=== PATIENT | female | born 1930 | race African-American/Black ===

== ENCOUNTER → 2016-05-14 | Outpatient (CLI) | payer MEDICARE, OTHER ==
[2016-05-14 11:28] LABS: ALANINE AMINOTRANSFERASE 23 U/L (9-52); ALBUMIN 3.8 g/dL (3.5-5.0); ALKALINE PHOSPHATASE 50 U/L (38-126); ANION GAP 12 (5-19); ASPARTATE AMINO TRANSFERASE 28 U/L (14-36); BILIRUBIN,TOTAL 0.5 mg/dL (0.2-1.3); BLOOD UREA NITROGEN 16 mg/dL (7-20); CALCIUM 9.5 mg/dL (8.4-10.2); CARBON DIOXIDE 27 mmol/L (22-30); CHLORIDE 97 mmol/L (98-107); CHOLESTEROL 166.16 mg/dL (0-200); CREATININE RESULT 0.75 mg/dL (0.52-1.25); Direct HDL 61 mg/dL (>40); GLUCOSE 89 mg/dL (75-110); POTASSIUM 3.8 mmol/L (3.6-5.0); SODIUM 135.6 mmol/L (137-145); TOTAL PROTEIN 7.1 g/dL (6.3-8.2); TRIGLYCERIDES 56 mg/dL (<150)
[2016-05-14 11:40] LABS: DIRECT LDL 85 mg/dL (<100)
== END ==
LOC: OD 09:33
PROVIDERS: ATTEND Internal Medicine
DX: I10 Essential (primary) hypertension (principal); E78.5 Hyperlipidemia, unspecified; I44.2 Atrioventricular block, complete; R00.1 Bradycardia, unspecified; Z79.899 Other long term (current) drug therapy; Z95.0 Presence of cardiac pacemaker; K21.9 Gastro-esophageal reflux disease without esophagitis; I36.1 Nonrheumatic tricuspid (valve) insufficiency
CPT/HCPCS: 36415; 80053; 80061

== ENCOUNTER 2017-03-30 07:57 | Emergency (ER) | payer MEDICARE, OTHER ==
[2017-03-30] MEDS ORDERED: ASPIRIN 81 MG TABLET, CHEWABLE PO ONE (08:09)
--- NOTE | 2017-03-30 08:13 | ER Document Report ---
ED General - General Chief Complaint: Dizziness Stated Complaint: DIZZY/WEAKNESS Time Seen by Provider: 03/30/17 08:09 Mode of Arrival: Medic Information source: Patient Notes: 86-year-old female history of pacemaker presents with complaints of feeling jittery dizzy and anxious. Patient denies any actual chest pain admits to nausea. She denies any abdominal pain or any other pain TRAVEL OUTSIDE OF THE [place] IN LAST 30 DAYS: No - HPI Onset: Just prior to arrival Onset/Duration: Sudden Quality of pain: No pain Severity: Mild Pain Level: Denies Associated symptoms: Nausea, Weakness, Other Exacerbated by: Denies Relieved by: Denies Similar symptoms previously: No Recently seen / treated by doctor: No - Related Data Allergies/Adverse Reactions: No Known Allergies Allergy (Verified 03/30/17 07:58) Home Medications: Current Home Medications Aspirin [Aspirin 81 mg Chewable Tablet] 1 tab PO DAILY 03/30/17 [History] Hydralazine HCl 100 mg PO TID 03/30/17 [History] Omeprazole 20 mg PO DAILY 03/30/17 [History] Past Medical History - Social History Smoking Status: Never Smoker Cigarette use (# per day): No Chew tobacco use (# tins/day): No Smoking Education Provided: No Family History: Reviewed & Not Pertinent - Past Medical History Cardiac Medical History: Reports: Hx Hypercholesterolemia, Hx Hypertension GI Medical History: Reports: Hx Gastroesophageal Reflux Disease Past Surgical History: Reports: Hx Appendectomy, Hx Hysterectomy, Hx Tubal Ligation - Immunizations Hx Diphtheria, Pertussis, Tetanus Vaccination: Yes Hx Pneumococcal Vaccination: 04/29/11 Review of Systems - Review of Systems Notes: REVIEW OF SYSTEMS: CONSTITUTIONAL : Denies fever, chills, or sweats. Denies recent illness. EENT: Denies eye, ear, throat, or mouth pain or symptoms. Denies nasal or sinus congestion or discharge. Denies throat, tongue, or mouth swelling or difficulty swallowing. CARDIOVASCULAR: Denies chest pain. Denies palpitations or racing or irregular heart beat. Denies ankle edema. RESPIRATORY: Denies cough, cold, or chest congestion. Denies shortness of breath, difficulty breathing, or wheezing. GASTROINTESTINAL: Admits to nausea GENITOURINARY: Denies difficulty urinating, painful urination, burning, frequency, blood in urine, or discharge. FEMALE GENITOURINARY: Denies vaginal bleeding, heavy or abnormal periods, irregular periods. Denies vaginal discharge or odor. MUSCULOSKELETAL: Denies back or neck pain or stiffness. Denies joint pain or swelling. SKIN: Denies rash, lesions or sores. HEMATOLOGIC : Denies easy bruising or bleeding. LYMPHATIC: Denies swollen, enlarged glands. NEUROLOGICAL: Admits to dizziness PSYCHIATRIC: Admits to anxiety ALL OTHER SYSTEMS REVIEWED AND NEGATIVE. PHYSICAL EXAMINATION: GENERAL: Well-appearing, well-nourished and in no acute distress. HEAD: Atraumatic, normocephalic. EYES: Pupils equal round and reactive to light, extraocular movements intact, conjunctiva are normal. ENT: Nares patent, oropharynx clear without exudates. Moist mucous membranes. NECK: Normal range of motion, supple without lymphadenopathy LUNGS: Breath sounds clear to auscultation bilaterally and equal. No wheezes rales or rhonchi. HEART: Regular rate and rhythm without murmurs ABDOMEN: Soft, nontender, nondistended abdomen. No guarding, no rebound. No masses appreciated. Female : deferred Musculoskeletal: Normal range of motion, no pitting or edema. No cyanosis. NEUROLOGICAL: Cranial nerves grossly intact. Normal speech, normal gait. Normal sensory, motor exams PSYCH: Normal mood, normal affect. SKIN: Warm, Dry, normal turgor, no rashes or lesions noted. Dictation was performed using [employer] voice recognition software Physical Exam - Vital signs Vitals: Temp Pulse Resp BP Pulse Ox 98.5 F 94 18 114/85 99 03/30/17 08:01 03/30/17 08:01 03/30/17 08:01 03/30/17 08:01 03/30/17 08:01 Course - Re-evaluation Re-evalutation: 03/30/17 10:31 After labs and imaging noted no significant abnormality, I spoke with the patient further, she admits she is just very anxious because there is an inmate on the loose and she was unable to sleep all night. I believe patient's symptoms are all anxiety related After performing a Medical Screening Examination, I estimate there is LOW risk for INTRACRANIAL HEMORRHAGE, ISCHEMIC CVA, MALIGNANT DYSRHYTHMIA, ACUTE CORONARY SYNDROME, MENINGITIS, PULMONARY EMBOLISM, or SEPSIS thus I consider the discharge disposition reasonable. I have reevaluated this patient multiple times and no significant life threatening changes are noted. The patient and I have discussed the diagnosis and risks, and we agree with discharging home with close follow-up with the understanding that symptoms and presentations can change. We also discussed returning to the Emergency Department immediately if new or worsening symptoms occur. We have discussed the symptoms which are most concerning (e.g., changing or worsening pain, weakness, vomiting, fever) that necessitate immediate return. - Vital Signs Vital signs: Temp Pulse Resp BP Pulse Ox 98.5 F 94 21 H 148/69 H 99 03/30/17 08:01 03/30/17 08:01 03/30/17 10:01 03/30/17 10:01 03/30/17 10:01 - Laboratory Result Diagrams: 03/30/17 08:59 03/30/17 08:59 Laboratory results interpreted by me: 03/30/17 03/30/17 03/30/17 08:59 08:59 08:59 WBC 3.9 L RDW 14.2 H Monocytes % 13.4 H Glucose 121 H Urine Protein 30 H Ur Leukocyte Esterase TRACE H Urine Ascorbic Acid 40 H - Diagnostic Test Radiology reviewed: Image reviewed, Reports reviewed - EKG Interpretation by Me EKG shows normal: Sinus rhythm, [place], Intervals, QRS Complexes - Paced rhythm Discharge - Discharge Clinical Impression: Anxiety, Dizzy, Nausea Condition: Stable Disposition: HOME, SELF-CARE Instructions: Dizziness ([facility]) Referrals: ANIKA AGRAWAL MD [Primary Care Provider] - Follow up tomorrow
[2017-03-30 09:18] LABS: ABSOLUTE LYMPHOCYTES (AUTO) 0.6 10^3/uL (0.5-4.7); ABSOLUTE MONOCYTES (AUTO) 0.5 10^3/uL (0.1-1.4); ABSOLUTE NEUT (AUTO) 2.7 10^3/uL (1.7-8.2); APPEARANCE,URINE SLIGHTLY-CLOUDY; BASOPHILS % (AUTO) 0.5 % (0-2); BILIRUBIN,URINE NEGATIVE (NEGATIVE); EOSINOPHILS % (AUTO) 0.7 % (0-6); GLUCOSE, URINE NEGATIVE (NEGATIVE); HEMATOCRIT 36.8 % (36.0-47.0); HEMOGLOBIN 13.2 g/dL (12.0-15.5); HGB HCT DIFFERENCE 2.8; KETONES,URINE NEGATIVE (NEGATIVE); LEUKOCYTE ESTERASE,URINE TRACE (NEGATIVE); LYMPHOCYTES % (AUTO) 16.2 % (13-45); MEAN CORPUSCULAR HEMOGLOBIN 33.1 pg (27.0-33.4); MEAN CORPUSCULAR HGB CONC 35.8 g/dL (32.0-36.0); MEAN CORPUSCULAR VOLUME 93 fl (80-97); MONOCYTES % (AUTO) 13.4 % (3-13); NITRITE,URINE NEGATIVE (NEGATIVE); PROTEIN,URINE 30 mg/dL (NEGATIVE); RED BLOOD COUNT 3.97 10^6/uL (3.72-5.28); RED CELL DISTRIBUTION WIDTH 14.2 % (11.5-14.0); SEGMENTED NEUTROPHILS % (AUTO) 69.2 % (42-78); URINE SPECIFIC GRAVITY 1.024; UROBILINOGEN,URINE NEGATIVE mg/dL (<2.0); WHITE BLOOD COUNT 3.9 10^3/uL (4.0-10.5)
--- NOTE | 2017-03-30 09:23 | RADIOLOGY REPORT (SQ) ---
EXAM DESCRIPTION: CT HEAD WITHOUT COMPLETED DATE/TIME: 03/30/2017 9:13 am REASON FOR STUDY: dizzy COMPARISON: 02/02/2009, 06/06/2011 TECHNIQUE: Axial images acquired through the brain without intravenous contrast. Images reviewed wi th bone, brain and subdural windows. Images stored on PACS. All CT scanners at this facility use dose modulation, iterative reconstruction, and/or weight based d osing when appropriate to reduce radiation dose to as low as reasonably achievable (ALARA). [facility]: Dose Right [facility]: CareDose [facility]: Dose Right [facility]: Teradose 4D [facility]: Sponsia RADIATION DOSE: 64 mGy. LIMITATIONS: None. FINDINGS: VENTRICLES: Normal size and contour. CEREBRUM: No masses. No hemorrhage. No midline shift. No evidence for acute infarction. Few scatte red areas of low density in the white matter and basal ganglia on most likely chronic small vessel is chemic changes. CEREBELLUM: No masses. No hemorrhage. No alteration of density. No evidence for acute infarction. EXTRAAXIAL SPACES: No fluid collections. No masses. ORBITS AND GLOBE: No intra- or extraconal masses. Normal contour of globe without masses. CALVARIUM: No fracture. PARANASAL SINUSES: No fluid or mucosal thickening. SOFT TISSUES: No mass or hematoma. OTHER: No other significant finding. IMPRESSION: Stable chronic white matter disease. No acute findings EVIDENCE OF ACUTE STROKE: NO. COMMENT: Quality ID # [id number]: Final reports with documentation of one or more dose reduction techniques (e.g., Automated exposure control, adjustment of the mA and/or kV according to patient size, use of iterative reconstruction technique) TECHNICAL DOCUMENTATION: JOB ID: [id number]- All Rights Reserved
[2017-03-30 09:30] LABS: RBC,URINE 0-1 /HPF
[2017-03-30 09:31] LABS: BACTERIA,URINE 2+ /HPF
[2017-03-30 09:40] LABS: ALANINE AMINOTRANSFERASE 28 U/L (9-52); ALBUMIN 4.2 g/dL (3.5-5.0); ALKALINE PHOSPHATASE 50 U/L (38-126); ANION GAP 12 (5-19); ASPARTATE AMINO TRANSFERASE 25 U/L (14-36); BILIRUBIN,DIRECT 0.4 mg/dL (0.0-0.4); BILIRUBIN,TOTAL 0.7 mg/dL (0.2-1.3); BLOOD UREA NITROGEN 10 mg/dL (7-20); CALCIUM 9.7 mg/dL (8.4-10.2); CARBON DIOXIDE 25 mmol/L (22-30); CHLORIDE 101 mmol/L (98-107); CREATINE KINASE 70 U/L (30-135); CREATININE RESULT 0.67 mg/dL (0.52-1.25); GLUCOSE 121 mg/dL (75-110); POTASSIUM 3.6 mmol/L (3.6-5.0); TOTAL PROTEIN 7.8 g/dL (6.3-8.2)
[2017-03-30 09:52] LABS: CREATINE KINASE MB 1.12 ng/mL (<4.55)
[2017-03-30 09:53] LABS: TROPONIN I < 0.012 ng/mL
--- NOTE | 2017-03-30 10:04 | RADIOLOGY REPORT (SQ) ---
EXAM DESCRIPTION: CHEST SINGLE VIEW COMPLETED DATE/TIME: 03/30/2017 9:16 am REASON FOR STUDY: weakness COMPARISON: Chest films 07/31/2014, 07/10/2012 EXAM PARAMETERS: NUMBER OF VIEWS: One view. TECHNIQUE: Single frontal radiographic view of the chest acquired. RADIATION DOSE: NA LIMITATIONS: None. FINDINGS: LUNGS AND PLEURA: No opacities, masses or pneumothorax. No pleural effusion. MEDIASTINUM AND HILAR STRUCTURES: No masses. Contour normal. HEART AND VASCULAR STRUCTURES: Stable cardiomegaly. BONES: Old right proximal humerus fracture HARDWARE: Left-sided pacemaker OTHER: No other significant finding. IMPRESSION: No acute findings TECHNICAL DOCUMENTATION: JOB ID: [id number] [employer]- All Rights Reserved
[2017-03-30] MEDS ORDERED: METOCLOPRAMIDE HCL INJ/PF 10 MG/2 ML SDV IV ONE (10:12)
[2017-03-30 11:00] VITALS: BP 148/69
--- NOTE | 2017-03-30 20:58 | EKG REPORT ---
SEVERITY:- ABNORMAL ECG - ATRIAL-SENSED VENTRICULAR-PACED RHYTHM : Confirmed by: Leroy Edmonds MD 30-Mar-2017 14:24:42
== END 2017-03-30 11:00 | disposition home or self-care (01) ==
LOC: ER 07:57
DX: F41.9 Anxiety disorder, unspecified (principal); R42 Dizziness and giddiness; R11.0 Nausea; R53.1 Weakness; I10 Essential (primary) hypertension; Z95.0 Presence of cardiac pacemaker
CPT/HCPCS: 93005; 99285; 96374; 36415; 82553; 82550; 85025; 80053; 81001; 84484; 71010; 70450; 93010; A9270; J2765

== ENCOUNTER 2017-04-14 15:01 | Emergency (ER) | payer MEDICARE, OTHER ==
[2017-04-14] MEDS ORDERED: ONDANSETRON 4 MG TAB.RAPDIS PO ONE (15:26)
[2017-04-14] MEDS ORDERED: HYDROCODONE/ACETAMINOPHEN 5-325 MG TABLET PO ONE (15:26)
--- NOTE | 2017-04-14 15:28 | ER Document Report ---
ED Medical Screen (RME) - General Chief Complaint: Headache Stated Complaint: HEADACHE Time Seen by Provider: 04/14/17 15:19 Notes: This 86-year-old female patient comes emergency room complaining of a bitemporal type headache that started last night. She took 2 Tylenol which seemed to help a little. She did not take any Tylenol today. She describes the pain as a pounding headache, she also reports she gets dizzy when she gets up, the dizziness will go and come. The dizziness is not present now. When asked about the headache, she states "I still feels some misery in there". She is a very vague historian. She was seen here on 03/30/2017 complaining of dizziness and weakness and ultimately diagnosed as having anxiety problems. I have greeted and performed a rapid initial assessment of this patient. A comprehensive ED assessment and evaluation of the patient, analysis of test results and completion of the medical decision making process will be conducted by additional ED providers. TRAVEL OUTSIDE OF THE [place] IN LAST 30 DAYS: No - Related Data Allergies/Adverse Reactions: No Known Allergies Allergy (Verified 04/14/17 15:02) Past Medical History - Social History Chew tobacco use (# tins/day): No Frequency of alcohol use: None Drug Abuse: None - Past Medical History Cardiac Medical History: Reports: Hx Hypercholesterolemia, Hx Hypertension Renal/ Medical History: Denies: Hx Peritoneal Dialysis GI Medical History: Reports: Hx Gastroesophageal Reflux Disease Past Surgical History: Reports: Hx Appendectomy, Hx Cardiac Surgery - pacemaker , [facility] 2014, Hx Hysterectomy, Hx Tubal Ligation - Immunizations Hx Diphtheria, Pertussis, Tetanus Vaccination: Yes Physical Exam - Vital signs Vitals: Temp Pulse Resp BP Pulse Ox 98.5 F 68 16 157/60 H 97 04/14/17 15:11 04/14/17 15:11 04/14/17 15:11 04/14/17 15:11 04/14/17 15:11 Course - Vital Signs Vital signs: Temp Pulse Resp BP Pulse Ox 98.5 F 68 16 157/60 H 97 04/14/17 15:11 04/14/17 15:11 04/14/17 15:11 04/14/17 15:11 04/14/17 15:11
[2017-04-14 16:06] LABS: ABSOLUTE EOSINOPHILS # (AUTO) 0.1 10^3/uL (0.0-0.6); ABSOLUTE LYMPHOCYTES (AUTO) 0.8 10^3/uL (0.5-4.7); ABSOLUTE MONOCYTES (AUTO) 0.6 10^3/uL (0.1-1.4); ABSOLUTE NEUT (AUTO) 3.2 10^3/uL (1.7-8.2); BASOPHILS % (AUTO) 0.9 % (0-2); EOSINOPHILS % (AUTO) 2.2 % (0-6); HEMOGLOBIN 12.7 g/dL (12.0-15.5); HGB HCT DIFFERENCE 2.1; LYMPHOCYTES % (AUTO) 16.6 % (13-45); MEAN CORPUSCULAR HEMOGLOBIN 32.7 pg (27.0-33.4); MEAN CORPUSCULAR HGB CONC 35.3 g/dL (32.0-36.0); MEAN CORPUSCULAR VOLUME 93 fl (80-97); MONOCYTES % (AUTO) 12.7 % (3-13); RED BLOOD COUNT 3.89 10^6/uL (3.72-5.28); RED CELL DISTRIBUTION WIDTH 13.6 % (11.5-14.0); SEGMENTED NEUTROPHILS % (AUTO) 67.6 % (42-78); WHITE BLOOD COUNT 4.7 10^3/uL (4.0-10.5)
[2017-04-14 16:08] LABS: APPEARANCE,URINE CLEAR; BILIRUBIN,URINE NEGATIVE (NEGATIVE); GLUCOSE, URINE NEGATIVE (NEGATIVE); KETONES,URINE NEGATIVE (NEGATIVE); LEUKOCYTE ESTERASE,URINE NEGATIVE (NEGATIVE); NITRITE,URINE NEGATIVE (NEGATIVE); PROTEIN,URINE NEGATIVE (NEGATIVE); URINE SPECIFIC GRAVITY 1.006; UROBILINOGEN,URINE NEGATIVE mg/dL (<2.0)
[2017-04-14 16:22] LABS: ALANINE AMINOTRANSFERASE 29 U/L (9-52); ALBUMIN 4.3 g/dL (3.5-5.0); ALKALINE PHOSPHATASE 50 U/L (38-126); ANION GAP 12 (5-19); ASPARTATE AMINO TRANSFERASE 22 U/L (14-36); BILIRUBIN,DIRECT 0.3 mg/dL (0.0-0.4); BILIRUBIN,TOTAL 0.4 mg/dL (0.2-1.3); BLOOD UREA NITROGEN 12 mg/dL (7-20); CALCIUM 9.6 mg/dL (8.4-10.2); CARBON DIOXIDE 26 mmol/L (22-30); CHLORIDE 98 mmol/L (98-107); CREATININE RESULT 0.69 mg/dL (0.52-1.25); GLUCOSE 108 mg/dL (75-110); POTASSIUM 3.3 mmol/L (3.6-5.0); SODIUM 136.2 mmol/L (137-145); TOTAL PROTEIN 7.6 g/dL (6.3-8.2)
[2017-04-14] MEDS ORDERED: HYDRALAZINE HCL 50 MG TABLET PO ONE (16:42)
[2017-04-14 16:45] LABS: ERYTHROCYTE SEDIMENTATION RATE 23 mm/hr (0-30)
--- NOTE | 2017-04-14 16:46 | ER Document Report ---
ED Headache - General Chief Complaint: Headache Stated Complaint: HEADACHE Time Seen by Provider: 04/14/17 15:19 Notes: patient is a 86 year old female who presents emergency department complaining of headache over the past 24 hours. Patient states that she has had them on and off for the past couple weeks respond to Tylenol. She denies any head trauma, fall. Patient is not on blood thinners. States that her headache she woke up with yesterday described as a tension headache in her temples and is a throbbing pain. Otherwise denies any light sensitivity, sound sensitivity, nausea, vomiting, vision changes, blurry vision. Patient does have a history of hypertension, GERD. She is on hydralazine, amlodipine, metoprolol as well as omeprazole and baby aspirin. She was seen here on March 30 for lightheadedness and dizziness without an associated headache at that time. Otherwise she denies any weakness or dizziness at this time, weakness, numbness or tingling, chest pain. She does have a dual pacemaker ICD in place. TRAVEL OUTSIDE OF THE [place] IN LAST 30 DAYS: No - Related Data Allergies/Adverse Reactions: No Known Allergies Allergy (Verified 04/14/17 15:02) Past Medical History - Social History Smoking Status: Never Smoker Chew tobacco use (# tins/day): No Frequency of alcohol use: None Drug Abuse: None Family History: Reviewed & Not Pertinent Patient has suicidal ideation: No Patient has homicidal ideation: No - Past Medical History Cardiac Medical History: Reports: Hx Hypercholesterolemia, Hx Hypertension Renal/ Medical History: Denies: Hx Peritoneal Dialysis GI Medical History: Reports: Hx Gastroesophageal Reflux Disease Past Surgical History: Reports: Hx Appendectomy, Hx Cardiac Surgery - pacemaker , [facility] 2013, Hx Hysterectomy, Hx Tubal Ligation - Immunizations Hx Diphtheria, Pertussis, Tetanus Vaccination: Yes Hx Pneumococcal Vaccination: 04/29/11 Review of Systems - Review of Systems Constitutional: No symptoms reported EENT: No symptoms reported Cardiovascular: No symptoms reported Respiratory: No symptoms reported Gastrointestinal: No symptoms reported Musculoskeletal: No symptoms reported Neurological/Psychological: See HPI -: Yes All other systems reviewed and negative Physical Exam - Vital signs Vitals: Temp Pulse Resp BP Pulse Ox 98.5 F 68 16 157/60 H 97 04/14/17 15:11 04/14/17 15:11 04/14/17 15:11 04/14/17 15:11 04/14/17 15:11 - General General appearance: Appears well, Alert In distress: None - HEENT Head: Normocephalic, Atraumatic Eyes: Normal Extraocular movements intact: Yes Eyelashes: Normal Pupils: PERRL Neck: Normal - Respiratory Respiratory status: No respiratory distress Chest status: Nontender Breath sounds: Normal Chest palpation: Normal - Cardiovascular Rhythm: Regular Heart sounds: Normal auscultation, S1 appreciated, S2 appreciated Pulses: Normal: Radial, Dorsalis pedis Normal capillary refill: Yes - Abdominal Inspection: Normal Distension: No distension Bowel sounds: Normal Tenderness: Nontender Organomegaly: No organomegaly - Extremities General upper extremity: Normal inspection, Nontender, Normal color, Normal ROM , Normal strength, Normal temperature General lower extremity: Normal inspection, Nontender, Normal color, Normal ROM , Normal strength, Normal temperature, Normal weight bearing - Neurological Neuro grossly intact: Yes Cognition: Normal Orientation: AAOx4 Peel Coma Scale Eye Opening: Spontaneous Peel Coma Scale Verbal: Oriented Peel Coma Scale Motor: Obeys Commands Shae Coma Scale Total: 15 Speech: Normal Cranial nerves: Normal. No: Facial palsy, Gaze palsy, Sensory deficit, Tongue deviation Cerebellar coordination: Normal, Heel-guzman - no difficulty, Other - negative for dysmetria with normal finger to nose testing. 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 No: Pronator drift, Weakness, Hemiplegia Sensory: Normal - Skin Skin Temperature: Warm Skin Moisture: Dry Skin Color: Normal Skin Turgor: Elastic Course - Re-evaluation Re-evalutation: 04/14/17 18:00 Patient is an 86-year-old female who is hemodynamically stable, no acute distress and afebrile. Patient has been having these headaches for quite some time and they do respond to Tylenol. States that this headache is not any different than her normal chest that did not go away after Tylenol. Patient did skip a dose of her hydralazine which was given in the emergency department. After then medications received in triage, patient states that her throbbing is much improved. Patient also had a recent head CT on Mar.30 which was benign. Low clinical suspicion for TIA, CVA, intracranial hemorrhage given patient does not have any focal neurologic deficits, nuchal rigidity, vital signs are within normal limits no papilledema. Patient is otherwise no acute distress and hemodynamically stable. Low index for suspicion of acute subarachnoid hemorrhage, meningitis or mass. Low suspicion for acute life- threatening etiology with intact neuro exam therefore no additional imaging or laboratory testing is indicated. Will discharge patient home with strict follow -up with PCP for blood pressure check within the next week. - Vital Signs Vital signs: Temp Pulse Resp BP Pulse Ox 98.5 F 68 16 157/60 H 97 04/14/17 15:11 04/14/17 15:11 04/14/17 15:11 04/14/17 15:11 04/14/17 15:11 - Laboratory Result Diagrams: 04/14/17 15:34 04/14/17 15:34 Laboratory results interpreted by me: 04/14/17 15:34 Sodium 136.2 L Potassium 3.3 L - EKG Interpretation by Me EKG shows normal: Sinus rhythm Rate: Normal Rhythm: Other - paced When compared to previous EKG there are: No significant change Discharge - Discharge Clinical Impression: Headache Qualifiers: Headache type: unspecified Headache chronicity pattern: episodic headache Intractability: not intractable Qualified Code(s): R51 - Headache Condition: Good Disposition: HOME, SELF-CARE Additional Instructions: HEADACHE: The physician does not feel that the headache you are experiencing has a serious underlying cause. Most headaches are due to emotional stress, with resultant muscle tension (tension headache). Occasionally, headaches are secondary to changes in the blood vessels of the scalp (vascular headache and migraine headache). Sometimes, a headache is the first symptom of another developing illness, such as a viral infection. You have no evidence of stroke, bleeding, meningitis, or other serious cause of your headache. The treatment of headaches varies with the severity and cause of the pain. Not all headaches need pain shots. In fact, there is evidence that using narcotics for headaches may make them worse in the long run. The physician will determine the therapy that's in your best interest. If you develop a fever, if the headache is different from any you've previously experienced, or if the headache progressively worsens, then call your physician at once or go to the emergency room. USE OF DIPHENHYDRAMINE: Diphenhydramine (Benadryl) is an antihistamine and has been recommended to help treat your headache and to prevent side effects of other medications used to treat headaches. The medication can be repeated four times daily. Age Elixir (12.5 mg/tsp) 25 mg pill adult 1-2 tabs Antihistamines may cause drowsiness, especially with the first dose. Do not operate machinery or drive while under the effects of the medication. Do not combine the medication with alcohol, or with any other medication without talking to your doctor. ANTINAUSEA MEDICATION: You have been given a medication to suppress nausea and vomiting. This type of medication can be given as a shot, pill, or suppository. It will usually last for many hours. Pills and shots usually last six to eight hours, suppositories last about 12 hours. For the typical illness, only one or two doses of the medication may be necessary. Mild lightheadedness may occur. This type of medicine can cause drowsiness. Do not drive or operate dangerous machinery while under its influence. Do not mix with alcohol. See your doctor at once if you have muscle spasms or tightness, or uncontrollable motions (particularly of the neck, mouth, or jaw). Persistent vomiting or severe lightheadedness should also be evaluated by the physician. FOLLOW-UP CARE: If you have been referred to a physician for follow-up care, call the physician s office for an appointment as you were instructed or within the next two days. If you experience worsening or a significant change in your symptoms, notify the physician immediately or return to the Emergency Department at any time for re-evaluation. Referrals: ANIKA AGRAWAL MD [Primary Care Provider] - Follow up tomorrow
[2017-04-14] MEDS ORDERED: DIPHENHYDRAMINE HCL 25 MG CAPSULE PO ONE (16:59)
[2017-04-14 18:25] VITALS: BP 144/70
--- NOTE | 2017-04-14 22:59 | EKG REPORT ---
SEVERITY:- ABNORMAL ECG - A-V DUAL-PACED RHYTHM : Confirmed by: Sammi Aguilera 14-Apr-2017 22:59:01
== END 2017-04-14 18:25 | disposition home or self-care (01) ==
LOC: ER 15:01
DX: R51 Headache (principal); I10 Essential (primary) hypertension; K21.9 Gastro-esophageal reflux disease without esophagitis; R42 Dizziness and giddiness
CPT/HCPCS: 93005; 99284; 36415; 85025; 85652; 80053; 81001; 93010; A9270 ×4; S0119

== ENCOUNTER → 2017-04-19 | Outpatient (CLI) | payer MEDICARE, OTHER ==
--- NOTE | 2017-04-19 15:37 | RADIOLOGY REPORT (SQ) ---
EXAM DESCRIPTION: CT ABD/PELVIS WITH IV ORAL COMPLETED DATE/TIME: 04/19/2017 3:03 pm REASON FOR STUDY: R10.84 GENERALIZED ABDOMINAL PAIN R10.84 GENERALIZED ABDOMINAL PAIN COMPARISON: Abdominal ultrasound 07/13/2012 AP chest 03/30/2017 TECHNIQUE: CT scan of the abdomen and pelvis performed using helical scanning technique with dynamic intravenous contrast injection. Patient drank oral contrast. Images reviewed with lung, soft tissue, and bone windows. Reconstructed coronal and sagittal MPR imag es reviewed. Delayed images for evaluation of the urinary system also acquired. All images stored on PACS. All CT scanners at this facility use dose modulation, iterative reconstruction, and/or weight based d osing when appropriate to reduce radiation dose to as low as reasonably achievable (ALARA). [facility]: Dose Right [facility]: CareDose [facility]: Dose Right [facility]: Teradose 4D [facility]: SendMe CONTRAST TYPE AND DOSE: contrast/concentration: Isovue 370.00 mg/ml; Total Contrast Delivered: 66.0 ml; Total Saline Delivered: 65.0 ml RENAL FUNCTION: Creatinine 0.7 RADIATION DOSE: CT Rad equipment meets quality standard of care and radiation dose reduction techniq ues were employed. CTDIvol: 8.9 - 9.1 mGy. DLP: 848 mGy-cm.. LIMITATIONS: None. FINDINGS: LOWER CHEST: Moderate cardiomegaly. Distal thoracic aorta 3.6 cm in diameter. Lung bases are clear. LIVER: Normal size. No masses. No dilated ducts. SPLEEN: Normal size. No focal lesions. PANCREAS: No masses. No significant calcifications. No adjacent inflammation or peripancreatic fluid collections. Pancreatic duct not dilated. GALLBLADDER: No identified stones by CT criteria. No inflammatory changes to suggest cholecystitis. ADRENAL GLANDS: No significant masses or asymmetry. RIGHT KIDNEY AND URETER: No solid masses. No significant calcifications. No hydronephrosis or hyd roureter. LEFT KIDNEY AND URETER: No solid masses. No significant calcifications. No hydronephrosis or hydr oureter. AORTA AND VESSELS: No aneurysm. No dissection. Heavily calcified abdominal aorta and visceral arteri es. No high-grade SMA or celiac artery stenosis. Suspect bilateral renal artery stenosis RETROPERITONEUM: No retroperitoneal adenopathy, hemorrhage or masses. BOWEL AND PERITONEAL CAVITY: No masses or inflammatory changes. No free fluid or peritoneal masses. Patient drank oral contrast. No bowel obstruction. No free air or fluid. APPENDIX: Surgically absent PELVIS: No mass. No free fluid. Normal bladder. ABDOMINAL WALL: No masses. No hernias. BONES: No significant or acute findings. OTHER: Report given to Dr. Castillo IMPRESSION: NO SIGNIFICANT OR ACUTE FINDING IN THE ABDOMEN OR PELVIS ON CT SCAN WITH IV CONTRAST. TECHNICAL DOCUMENTATION: JOB ID: [id number] Quality ID # [id number]: Final reports with documentation of one or more dose reduction techniques (e.g., Au tomated exposure control, adjustment of the mA and/or kV according to patient size, use of iterative reconstruction technique) 2010 [employer]- All Rights Reserved
== END ==
LOC: RAD 13:22
PROVIDERS: ATTEND Internal Medicine
DX: R10.84 Generalized abdominal pain (principal)
CPT/HCPCS: 74177

== ENCOUNTER 2019-01-23 10:50 | Observation (INO) | payer MEDICARE, OTHER ==
[2019-01-23] MEDS ORDERED: ASPIRIN 81 MG TABLET, CHEWABLE PO ONE (11:15)
[2019-01-23] MEDS ORDERED: MAG HYDROX/AL HYDROX/SIMETH SUSP 30 ML UDCUP PO ONE (11:19)
[2019-01-23] MEDS ORDERED: LIDOCAINE 2% VISCOUS SOLN 20 ML UDCUP PO ONE (11:19)
[2019-01-23] MEDS ORDERED: METOCLOPRAMIDE HCL ORAL SOLN 10 MG/10 ML UDCUP PO ONE (11:19)
--- NOTE | 2019-01-23 11:24 | ER Document Report ---
ED Medical Screen (RME) - General Chief Complaint: Chest Pain Stated Complaint: CHEST PAIN Time Seen by Provider: 01/23/19 11:14 Primary Care Provider: ANIKA AGRAWAL MD [Primary Care Provider] - Follow up as needed Notes: 88 y/o female who presents with chest pressure. Started a few days ago. [place] bad all night. States it is a chest pressure. Attempted to take maalox yesterday with no relief. Hx of HTN, pacemaker Exam: Grade III murmur noted. Paced rhythm. I have greeted and performed a rapid initial assessment of this patient. A comprehensive ED assessment and evaluation of the patient, analysis of test results and completion of medical decision making process will be conducted by an additional ED providers. TRAVEL OUTSIDE OF THE [place] IN LAST 30 DAYS: No - Related Data Allergies/Adverse Reactions: No Known Allergies Allergy (Verified 04/14/17 15:02) Past Medical History - Past Medical History Cardiac Medical History: Reports: Hx Hypercholesterolemia, Hx Hypertension Renal/ Medical History: Denies: Hx Peritoneal Dialysis GI Medical History: Reports: Hx Gastroesophageal Reflux Disease Past Surgical History: Reports: Hx Appendectomy, Hx Cardiac Surgery - pacemaker, [facility] 2013, Hx Hysterectomy, Hx Tubal Ligation - Immunizations Hx Diphtheria, Pertussis, Tetanus Vaccination: Yes Physical Exam - Vital signs Vitals: Temp Resp BP Pulse Ox 97.8 F 17 157/64 H 100 01/23/19 11:08 01/23/19 11:08 01/23/19 11:08 01/23/19 11:08 Course - Vital Signs Vital signs: Temp Pulse Resp BP Pulse Ox 97.8 F 18 135/61 H 99 01/23/19 11:08 01/23/19 12:01 01/23/19 12:01 01/23/19 12:01 Doctor's Discharge - Discharge Referrals: ANIKA AGRAWAL MD [Primary Care Provider] - Follow up as needed
--- NOTE | 2019-01-23 11:45 | ER Document Report ---
ED Cardiac - General Chief Complaint: Chest Pain Stated Complaint: CHEST PAIN Time Seen by Provider: 01/23/19 11:14 Primary Care Provider: ANIKA AGRAWAL MD [Primary Care Provider] - Follow up as needed Notes: Patient is an 88-year-old female with a history of hypertension, pacemaker placement, high cholesterol and gastritis who presents to the emergency department with a chief complaint of chest pressure. Patient reports have any discomfort to the center of her chest over the past few days. Patient reports she did attempt to take Maalox yesterday which did initially help and caused her to belch. Patient reports as soon thereafter develop any chest pressure once again. Patient reports she did take her omeprazole yesterday but has not had her dose today as she did run out of her medication. Patient denies nausea, vomiting or diarrhea. Patient reports she had her pacemaker placed 3 years ago for a low heart rate. Patient states she does not have a defibrillator. Patient denies shortness of breath or palpitations. Patient denies swelling to her lower extremities. TRAVEL OUTSIDE OF THE [place] IN LAST 30 DAYS: No - Related Data Allergies/Adverse Reactions: No Known Allergies Allergy (Verified 04/14/17 15:02) Past Medical History - General Information source: Patient - Social History Smoking Status: Never Smoker Chew tobacco use (# tins/day): No Frequency of alcohol use: None Drug Abuse: None Lives with: Spouse/Significant other Family History: Reviewed & Not Pertinent Patient has suicidal ideation: No Patient has homicidal ideation: No - Past Medical History Cardiac Medical History: Reports: Hx Hypercholesterolemia, Hx Hypertension, Other - Bradycardia Pulmonary Medical History: Reports: None EENT Medical History: Reports: None Neurological Medical History: Reports: None Endocrine Medical History: Reports: None Renal/ Medical History: Reports: None. Denies: Hx Peritoneal Dialysis Malignancy Medical History: Reports: None GI Medical History: Reports: Hx Gastroesophageal Reflux Disease Musculoskeletal Medical History: Reports None Skin Medical History: Reports None Psychiatric Medical History: Reports: None Traumatic Medical History: Reports: None Infectious Medical History: Reports: None Past Surgical History: Reports: Hx Appendectomy, Hx Cardiac Surgery - pacemaker, [facility] 2013, Hx Hysterectomy, Hx Tubal Ligation - Immunizations Hx Diphtheria, Pertussis, Tetanus Vaccination: Yes Hx Pneumococcal Vaccination: 04/29/11 Review of Systems - Review of Systems Constitutional: No symptoms reported EENT: No symptoms reported Cardiovascular: See HPI Respiratory: No symptoms reported Gastrointestinal: See HPI Genitourinary: No symptoms reported Female Genitourinary: No symptoms reported Musculoskeletal: No symptoms reported Skin: No symptoms reported Hematologic/Lymphatic: No symptoms reported Neurological/Psychological: No symptoms reported Physical Exam - Vital signs Vitals: Temp Resp BP Pulse Ox 97.8 F 17 157/64 H 100 01/23/19 11:08 01/23/19 11:08 01/23/19 11:08 01/23/19 11:08 - Notes Notes: GENERAL: Well-appearing, well-nourished and in no acute distress. HEAD: Atraumatic, normocephalic. EYES: Pupils equal round and reactive to light, extraocular movements intact, sclera anicteric, conjunctiva are normal. ENT: Nares patent, oropharynx clear without exudates. Moist mucous membranes. NECK: Normal range of motion, supple without lymphadenopathy or JVD. LUNGS: Breath sounds clear to auscultation bilaterally and equal. No wheezes rales or rhonchi. HEART: Regular rate and rhythm, grade II/III murmur. Paced rhythm on monitor. ABDOMEN: Soft, nontender, normoactive bowel sounds. No guarding, no rebound. No masses appreciated. BACK: No cervical, thoracic, lumbar midline tenderness. No saddle anesthesia, normal distal neurovascular exam. GENITOURINARY: Deferred. EXTREMITIES: Normal range of motion, no pitting or edema. No clubbing or cyanosis. NEUROLOGICAL: Cranial nerves II through XII grossly intact. Normal speech, n ormal gait. PSYCH: Normal mood, normal affect. SKIN: Warm, Dry, normal turgor, no rashes or lesions noted. Course - Re-evaluation Re-evalutation: 01/23/19 11:45 Patient had received 4 baby aspirin. Patient also received a GI cocktail. Will reevaluate. Due to patient's significant cardiac history will obtain basic labs, troponin. Labs have already been placed by the triage provider. Patient is currently in no acute distress. 01/23/19 11:57 Patient reports she did have a follow-up appointment with Dr. Agrawal at 2 PM today as she does need medications refilled. Patient states that the GI cocktail did relieve the chest pressure that she was having and that she is currently asymptomatic. We will continue to monitor. 01/23/19 13:51 Patient's labs at this time are unremarkable. Patient reports that her chest pressure has improved and that she continues to belch after receiving the GI cocktail. Patient reports that the GI cocktail has helped her belch which does relieve the chest pressure. Patient currently in no acute distress. I did attempt to call Dr. Agrawal's office to make them aware that patient is in the emergency department but there is no answer. 01/23/19 15:41 [address] speak with Dr. Agrawal who is the patient's primary care physician. He would like the patient admitted to the hospital as an observation in IM bed. I did discuss this with the patient. I have given her 40 mEq of potassium for her hypokalemia. Patient is currently chest pain-free. - Vital Signs Vital signs: Temp Pulse Resp BP Pulse Ox 97.8 F 15 132/61 H 98 01/23/19 11:08 01/23/19 14:00 01/23/19 13:01 01/23/19 14:00 - Laboratory Result Diagrams: 01/23/19 12:52 01/23/19 12:52 Laboratory results interpreted by me: 01/23/19 01/23/19 12:52 12:52 Hct 35.1 L Frio % (Auto) 14.2 H Sodium 133.9 L Potassium 3.0 L* BUN 6 L Patient hypokalemic with a potassium of 3.0. Patient's magnesium is normal at 2. Patient does not have a leukocytosis, anemia. Slightly hyponatremic. Laboratory 01/23/19 01/23/19 01/23/19 12:52 12:52 12:52 WBC 4.7 RBC 3.82 Hgb 12.2 Hct 35.1 L MCV 92 MCH 32.0 MCHC 34.9 RDW 13.2 Plt Count 222 Lymph % (Auto) 14.8 Frio % (Auto) 14.2 H Eos % (Auto) 0.4 Baso % (Auto) 0.6 Absolute Neuts (auto) 3.3 Absolute Lymphs (auto) 0.7 Absolute Monos (auto) 0.7 Absolute Eos (auto) 0.0 Absolute Basos (auto) 0.0 Seg Neutrophils % 70.0 Sodium 133.9 L Potassium 3.0 L* Chloride 99 Carbon Dioxide 26 Anion Gap 9 BUN 6 L Creatinine 0.59 Est GFR ( Amer) > 60 Est GFR (MDRD) Non-Af > 60 Glucose 109 Calcium 9.1 Magnesium Total Bilirubin 0.5 Direct Bilirubin 0.1 Neonat Total Bilirubin Not Reportable Neonat Direct Bilirubin Not Reportable Neonat Indirect Bili Not Reportable AST 32 ALT 13 Alkaline Phosphatase 53 Creatine Kinase 60 CK-MB (CK-2) 0.73 Troponin I 0.013 Total Protein 7.4 Albumin 3.8 01/23/19 12:52 WBC RBC Hgb Hct MCV MCH MCHC RDW Plt Count Lymph % (Auto) Frio % (Auto) Eos % (Auto) Baso % (Auto) Absolute Neuts (auto) Absolute Lymphs (auto) Absolute Monos (auto) Absolute Eos (auto) Absolute Basos (auto) Seg Neutrophils % Sodium Potassium Chloride Carbon Dioxide Anion Gap BUN Creatinine Est GFR ( Amer) Est GFR (MDRD) Non-Af Glucose Calcium Magnesium 2.0 Total Bilirubin Direct Bilirubin Neonat Total Bilirubin Neonat Direct Bilirubin Neonat Indirect Bili AST ALT Alkaline Phosphatase Creatine Kinase CK-MB (CK-2) Troponin I Total Protein Albumin - Diagnostic Test Radiology reviewed: Reports reviewed Radiology results interpreted by me: 01/23/19 15:43 Chest X-Ray 01/23/19 13:34 IMPRESSION: COPD. NO ACUTE RADIOGRAPHIC FINDING IN THE CHEST. - EKG Interpretation by Me Additional EKG results interpreted by nm: 01/23/19 15:43 Patient's EKG shows a paced rhythm with heart rate of 68. Patient's parent is 216, QT 464 and QTC is 494. Patient does have a left SX deviation. There is no obvious ectopy or ST segment changes in consecutive leads. Discharge - Discharge Clinical Impression: Hypokalemia, Pressure in chest, Hyponatremia Condition: Stable Disposition: ADMITTED OBSERVATION Admitting Provider: Anna Unit Admitted: IMCU Referrals: ANIKA AGRAWAL MD [Primary Care Provider] - Follow up as needed
[2019-01-23 13:06] LABS: ABSOLUTE LYMPHOCYTES (AUTO) 0.7 10^3/uL (0.5-4.7); ABSOLUTE MONOCYTES (AUTO) 0.7 10^3/uL (0.1-1.4); ABSOLUTE NEUT (AUTO) 3.3 10^3/uL (1.7-8.2); BASOPHILS % (AUTO) 0.6 % (0-2); EOSINOPHILS % (AUTO) 0.4 % (0-6); HEMATOCRIT 35.1 % (36.0-47.0); HEMOGLOBIN 12.2 g/dL (12.0-15.5); LYMPHOCYTES % (AUTO) 14.8 % (13-45); MEAN CORPUSCULAR HGB CONC 34.9 g/dL (32.0-36.0); MEAN CORPUSCULAR VOLUME 92 fl (80-97); MONOCYTES % (AUTO) 14.2 % (3-13); PLATELET COUNT 222 10^3/uL (150-450); RED BLOOD COUNT 3.82 10^6/uL (3.72-5.28); RED CELL DISTRIBUTION WIDTH 13.2 % (11.5-14.0); TOTAL CELLS COUNTED % (AUTO) 100 %; WHITE BLOOD COUNT 4.7 10^3/uL (4.0-10.5)
[2019-01-23 13:36] LABS: ALBUMIN 3.8 g/dL (3.5-5.0); ALKALINE PHOSPHATASE 53 U/L (38-126); ANION GAP 9 (5-19); ASPARTATE AMINO TRANSFERASE 32 U/L (14-36); BILIRUBIN,DIRECT 0.1 mg/dL (0.0-0.4); BILIRUBIN,TOTAL 0.5 mg/dL (0.2-1.3); BLOOD UREA NITROGEN 6 mg/dL (7-20); CALCIUM 9.1 mg/dL (8.4-10.2); CARBON DIOXIDE 26 mmol/L (22-30); CHLORIDE 99 mmol/L (98-107); CREATINE KINASE 60 U/L (30-135); GLUCOSE 109 mg/dL (75-110); TOTAL PROTEIN 7.4 g/dL (6.3-8.2)
[2019-01-23 13:47] LABS: CREATINE KINASE MB 0.73 ng/mL (<4.55); TROPONIN I 0.013 ng/mL
--- NOTE | 2019-01-23 14:32 | RADIOLOGY REPORT (SQ) ---
EXAM DESCRIPTION: CHEST 2 VIEWS COMPLETED DATE/TIME: 01/23/2019 1:49 pm REASON FOR STUDY: chest pressure COMPARISON: 03/30/2017. NUMBER OF VIEWS: Two view. TECHNIQUE: Frontal and lateral radiographic views of the chest acquired. LIMITATIONS: None. FINDINGS: LUNGS AND PLEURA: No opacities, masses or pneumothorax. No pleural effusion. Attenuated bl ood vessels and flattened delfin-diaphragms. MEDIASTINUM AND HILAR STRUCTURES: No masses. No contour abnormalities. HEART AND VASCULAR STRUCTURES: Heart normal in size and contour. No evidence for failure. BONES: No acute findings. Degenerative changes in the spine. HARDWARE: Pacemaker. OTHER: No other significant finding. IMPRESSION: COPD. NO ACUTE RADIOGRAPHIC FINDING IN THE CHEST. TECHNICAL DOCUMENTATION: JOB ID: [id number] [employer]- All Rights Reserved Reading location - IP/workstation name: [email or web address]
[2019-01-23] MEDS ORDERED: POTASSIUM CHLORIDE 10 MEQ CAPSULE.ER PO ONE (15:20)
[2019-01-23 21:38] LABS: PHOSPHORUS 2.5 mg/dL (2.5-4.5)
[2019-01-23] MEDS: HEPARIN SOD (PORCINE) 5,000 UNIT/ML 1 ML VIAL SUBCUT SCH (21:39)
[2019-01-23 21:41] LABS: PROTHROMBIN TIME 14.2 SEC (11.4-15.4)
[2019-01-23 21:42] LABS: PARTIAL THROMBOPLASTIN TIME 45.5 SEC (23.5-35.8)
[2019-01-23 21:55] LABS: FREE T4 (FREE THYROXINE) 1.2 ng/dL (0.78-2.19)
[2019-01-23] MEDS ORDERED: ATORVASTATIN CALCIUM 20 MG TABLET PO SCH (22:00)
[2019-01-23] MEDS ORDERED: (PENDING PHARMACY ID) (Telmisartan/Hydrochlorothiazid [Micardis Hct 40-12.5 Mg Tablet] 1 T PO SCH (22:00)
[2019-01-23 22:09] LABS: THYROID STIMULATING HORMONE 6.64 uIU/mL (0.47-4.68)
[2019-01-23 22:30] LABS: CREATINE KINASE MB 0.8 ng/mL (<4.55); TROPONIN I 0.014 ng/mL
[2019-01-23] MEDS ORDERED: HYDROCHLOROTHIAZIDE 12.5 MG TABLET PO ONE (22:45)
[2019-01-23] MEDS ORDERED: PANTOPRAZOLE SODIUM 40 MG TABLET.DR PO ONE (22:45)
[2019-01-23] MEDS ORDERED: HYDRALAZINE HCL 50 MG TABLET PO ONE (22:45)
[2019-01-23] MEDS ORDERED: LOSARTAN POTASSIUM 50 MG TABLET PO ONE (22:45)
[2019-01-23] MEDS ORDERED: METOPROLOL SUCCINATE 50 MG TAB.SR.24H PO ONE (23:00)
[2019-01-24] MEDS: AMLODIPINE BESYLATE 10 MG TABLET PO SCH ×2 (00:29→09:52)
[2019-01-24 03:34] LABS: CREATINE KINASE MB 0.64 ng/mL (<4.55); TROPONIN I 0.013 ng/mL
[2019-01-24] MEDS: HEPARIN SOD (PORCINE) 5,000 UNIT/ML 1 ML VIAL SUBCUT SCH (05:51)
[2019-01-24] MEDS ORDERED: HYDRALAZINE HCL 50 MG TABLET PO SCH (06:00)
--- NOTE | 2019-01-24 09:11 | EKG REPORT ---
SEVERITY:- ABNORMAL ECG - ATRIAL-SENSED VENTRICULAR-PACED RHYTHM : Confirmed by: Sammi Aguilera 24-Jan-2019 09:10:07
[2019-01-24 09:46] LABS: ALBUMIN 3.8 g/dL (3.5-5.0); ALKALINE PHOSPHATASE 53 U/L (38-126); ANION GAP 10 (5-19); ASPARTATE AMINO TRANSFERASE 27 U/L (14-36); BILIRUBIN,DIRECT 0.2 mg/dL (0.0-0.4); BILIRUBIN,TOTAL 0.7 mg/dL (0.2-1.3); BLOOD UREA NITROGEN 7 mg/dL (7-20); CALCIUM 9.4 mg/dL (8.4-10.2); CARBON DIOXIDE 25 mmol/L (22-30); CHLORIDE 98 mmol/L (98-107); GLUCOSE 125 mg/dL (75-110); TOTAL PROTEIN 7.1 g/dL (6.3-8.2)
[2019-01-24 09:53] LABS: CREATINE KINASE MB 0.81 ng/mL (<4.55)
[2019-01-24] MEDS ORDERED: ASPIRIN 325 MG TABLET PO SCH (10:00)
[2019-01-24] MEDS ORDERED: ASPIRIN 81 MG TABLET, CHEWABLE PO SCH (10:00)
[2019-01-24] MEDS ORDERED: PANTOPRAZOLE SODIUM 40 MG TABLET.DR PO SCH (10:00)
[2019-01-24] MEDS ORDERED: HYDROCHLOROTHIAZIDE 12.5 MG TABLET PO SCH (10:00)
[2019-01-24] MEDS ORDERED: LOSARTAN POTASSIUM 50 MG TABLET PO SCH (10:00)
[2019-01-24] MEDS ORDERED: METOPROLOL SUCCINATE 50 MG TAB.SR.24H PO SCH (10:00)
[2019-01-24 10:05] LABS: TROPONIN I < 0.012 ng/mL
--- NOTE | 2019-01-24 11:30 | PDOC H&P ---
History of Present Illness Admission Date/PCP: 01/23/19 16:17 ANIKA AGRAWAL MD History of Present Illness: JOYCE VILLEGAS is a 88 year old female, she has a history of hypertension, she came to the emergency room for evaluation of sensation of chest pressure. The symptom is epigastric, it is not provoked by activity or emotional outburst. She has a pacemaker placement, history of aortic valve stenosis, the twelve-lead EKG that was done demonstrated paced rhythm. The emergency room providers want patient admitted for evaluation, she was brought in for observation and evalu ation of chest symptoms. The chest pressure she manifested does not sound cardiac, it is more like a GI related condition. 3 sets of cardiac enzymes were negative for acute DE. Patient is poorly compliant with office visit, she was supposed to come to the office on Saturday for regular scheduled office visit but she decided to go to the ER. Past Medical History Cardiac Medical History: Reports: Hyperlipidema, Hypertension, Other - Bradycardia Pulmonary Medical History: Reports: None EENT Medical History: Reports: None Neurological Medical History: Reports: None Endocrine Medical History: Reports: None Renal/ Medical History: Reports: None Malignancy Medical History: Reports: None GI Medical History: Reports: Gastroesophageal Reflux Disease Musculoskeltal Medical History: Reports: None Skin Medical History: Reports: None Psychiatric Medical History: Reports: None, Depression Traumatic Medical History: Reports: None Infectious Medical History: Reports: None Past Surgical History Past Surgical History: Reports: Appendectomy, Hysterectomy, Tubal Ligation Social History Lives with: Spouse/Significant other Smoking Status: Never Smoker Frequency of Alcohol Use: Occasional Hx Recreational Drug Use: No Drugs: None Hx Prescription Drug Abuse: No - Advance Directive Resuscitation Status: Full Code Family History Family History: Reviewed & Not Pertinent Parental Family History Reviewed: Yes Children Family History Reviewed: Yes Sibling(s) Family History Reviewed.: Yes Medication/Allergy Home Medications: Amlodipine Besylate [Norvasc 10 mg Tablet] 10 mg PO DAILY 01/23/19 Aspirin [Aspirin 81 mg Chewable Tablet] 81 mg PO DAILY 01/23/19 Atorvastatin Calcium [Lipitor 20 mg Tablet] 20 mg PO QHS 01/23/19 Hydralazine HCl 100 mg PO Q8 01/23/19 Metoprolol Succinate [Toprol XL 100 mg Tablet] 100 mg PO DAILY 01/23/19 Omeprazole 40 mg PO DAILY 01/23/19 Telmisartan/Hydrochlorothiazid [Micardis HCT 40-12.5 mg Tablet] 1 tab PO DAILY 01/23/19 Allergies/Adverse Reactions: No Known Allergies Allergy (Verified 04/14/17 15:02) Review of Systems Constitutional: ABSENT: chills, fever(s), headache(s), weight gain, weight loss Eyes: ABSENT: visual disturbances Ears: ABSENT: hearing changes Cardiovascular: PRESENT: chest pain. ABSENT: dyspnea on exertion, edema, orthropnea, palpitations Respiratory: ABSENT: cough, hemoptysis Gastrointestinal: ABSENT: abdominal pain, constipation, diarrhea, hematemesis, hematochezia, nausea, vomiting Genitourinary: ABSENT: dysuria, hematuria Musculoskeletal: ABSENT: joint swelling Integumentary: ABSENT: rash, wounds Neurological: ABSENT: abnormal gait, abnormal speech, confusion, dizziness, focal weakness, syncope Psychiatric: ABSENT: anxiety, depression, homidical ideation, suicidal ideation Endocrine: ABSENT: cold intolerance, heat intolerance, menstrual abnormalities, polydipsia, polyuria Hematologic/Lymphatic: ABSENT: easy bleeding, easy bruising, lymphadenopathy Physical Exam Vital Signs: Temp Pulse Resp BP Pulse Ox 98.4 F 59 L 17 139/52 H 96 01/24/19 07:01 01/24/19 07:01 01/24/19 07:01 01/24/19 07:01 01/24/19 07:01 Intake & Output 01/23/19 01/24/19 01/25/19 06:59 06:59 06:59 Intake Total 220 Balance 220 Weight 60.6 kg General appearance: PRESENT: no acute distress, well-developed, well-nourished Head exam: PRESENT: atraumatic, normocephalic Eye exam: PRESENT: conjunctiva pink, EOMI, PERRLA Ear exam: PRESENT: normal external ear exam Mouth exam: PRESENT: moist, tongue midline Neck exam: PRESENT: full ROM Respiratory exam: PRESENT: clear to auscultation james Cardiovascular exam: PRESENT: RRR, +S1, +S2 Pulses: PRESENT: normal dorsalis pedis pul, +2 pedal pulses bilateral Vascular exam: PRESENT: normal capillary refill GI/Abdominal exam: PRESENT: normal bowel sounds, soft Rectal exam: PRESENT: deferred Neurological exam: PRESENT: alert, awake, oriented to person, oriented to place, oriented to time, oriented to situation, CN II-XII grossly intact Psychiatric exam: PRESENT: appropriate affect, normal mood Skin exam: PRESENT: dry, intact, warm Results Laboratory Results: 01/23/19 12:52 01/24/19 08:54 01/23/19 01/23/19 01/23/19 12:52 12:52 12:52 WBC 4.7 RBC 3.82 Hgb 12.2 Hct 35.1 L MCV 92 MCH 32.0 MCHC 34.9 RDW 13.2 Plt Count 222 Seg Neutrophils % 70.0 Sodium 133.9 L Potassium 3.0 L* Chloride 99 Carbon Dioxide 26 Anion Gap 9 BUN 6 L Creatinine 0.59 Est GFR ( Amer) > 60 Glucose 109 Calcium 9.1 Phosphorus Magnesium 2.0 Total Bilirubin 0.5 AST 32 Alkaline Phosphatase 53 Total Protein 7.4 Albumin 3.8 TSH Free T4 01/23/19 01/23/19 01/24/19 21:10 21:10 08:54 WBC RBC Hgb Hct MCV MCH MCHC RDW Plt Count Seg Neutrophils % Sodium 133.1 L Potassium 4.0 D Chloride 98 Carbon Dioxide 25 Anion Gap 10 BUN 7 Creatinine 0.66 Est GFR ( Amer) > 60 Glucose 125 H Calcium 9.4 Phosphorus 2.5 Magnesium 1.9 Total Bilirubin 0.7 AST 27 Alkaline Phosphatase 53 Total Protein 7.1 Albumin 3.8 TSH 6.64 H Free T4 1.20 01/23/19 01/23/19 01/23/19 12:52 12:52 17:14 Creatine Kinase 60 CK-MB (CK-2) 0.73 Troponin I 0.013 0.017 01/23/19 01/23/19 01/24/19 21:10 21:10 02:57 Creatine Kinase 51 44 CK-MB (CK-2) 0.80 Troponin I 0.014 01/24/19 01/24/19 01/24/19 02:57 08:54 08:54 Creatine Kinase 55 CK-MB (CK-2) 0.64 0.81 Troponin I 0.013 < 0.012 Impressions: Chest X-Ray 01/23/19 13:34 IMPRESSION: COPD. NO ACUTE RADIOGRAPHIC FINDING IN THE CHEST. Assessment & Plan - Diagnosis (1) Chest pain Qualifiers: Chest pain type: unspecified Qualified Code(s): R07.9 - Chest pain, unspecified Is this a current diagnosis for this admission?: Yes Plan: Patient is admitted for observation and management of chest pain
[2019-01-24 11:41] VITALS: BP 97/49
--- NOTE | 2019-01-24 11:49 | PDOC DISCHARGE SUMMARY ---
Impression - Admit/DC Date/PCP Admission Date/Primary Care Provider: 01/23/19 16:17 ANIKA AGRAWAL MD Discharge Date: 01/24/19 - Discharge Diagnosis (1) Chest pain Is this a current diagnosis for this admission?: Yes (2) Essential (primary) hypertension Is this a current diagnosis for this admission?: Yes (3) Aortic valve stenosis Is this a current diagnosis for this admission?: Yes (4) Reflux esophagitis Is this a current diagnosis for this admission?: Yes - Additional Information Resuscitation Status: Full Code Referrals: ANIKA AGRAWAL MD [Primary Care Provider] - Follow up as needed Home Medications: Amlodipine Besylate [Norvasc 10 mg Tablet] 10 mg PO DAILY 01/23/19 Aspirin [Aspirin 81 mg Chewable Tablet] 81 mg PO DAILY 01/23/19 Atorvastatin Calcium [Lipitor 20 mg Tablet] 20 mg PO QHS 01/23/19 Hydralazine HCl 100 mg PO Q8 01/23/19 Metoprolol Succinate [Toprol XL 100 mg Tablet] 100 mg PO DAILY 01/23/19 Omeprazole 40 mg PO DAILY 01/23/19 Telmisartan/Hydrochlorothiazid [Micardis HCT 40-12.5 mg Tablet] 1 tab PO DAILY 01/23/19 History of Present Illiness History of Present Illness: JOYCE VILLEGAS is a 88 year old female, she has a history of hypertension, she came to the emergency room for evaluation of sensation of chest pressure. The symptom is epigastric, it is not provoked by activity or emotional outburst. She has a pacemaker placement, history of aortic valve stenosis, the twelve-lead EKG that was done demonstrated paced rhythm. The emergency room providers want patient admitted for evaluation, she was brought in for observation and evaluation of chest symptoms. The chest pressure she manifested does not sound cardiac, it is more like a GI related condition. 3 sets of cardiac enzymes were negative for acute AK. Patient is poorly compliant with office visit, she was supposed to come to the office on Saturday for regular scheduled office visit but she decided to go to the ER. Hospital Course Hospital Course: Patient was admitted for the management of chest pain, 3 sets of cardiac enzymes, negative for acute AK, the chest pain is atypical in character, patient is stable, I do not see any indication at this point for inpatient care, she will follow with me in the office. Physical Exam Vital Signs: Temp Pulse Resp BP Pulse Ox 98.4 F 59 L 17 139/52 H 96 01/24/19 07:01 01/24/19 07:01 01/24/19 07:01 01/24/19 07:01 01/24/19 07:01 Intake & Output 01/23/19 01/24/19 01/25/19 06:59 06:59 06:59 Intake Total 220 Balance 220 Weight 60.6 kg General appearance: PRESENT: no acute distress Eye exam: PRESENT: PERRLA Respiratory exam: PRESENT: clear to auscultation james Cardiovascular exam: PRESENT: +S1, +S2 GI/Abdominal exam: PRESENT: soft Neurological exam: PRESENT: alert, CN II-XII grossly intact Results Laboratory Results: WBC 4.7 10^3/uL (4.0-10.5) 01/23/19 12:52 RBC 3.82 10^6/uL (3.72-5.28) 01/23/19 12:52 Hgb 12.2 g/dL (12.0-15.5) 01/23/19 12:52 Hct 35.1 % (36.0-47.0) L 01/23/19 12:52 MCV 92 fl (80-97) 01/23/19 12:52 MCH 32.0 pg (27.0-33.4) 01/23/19 12:52 MCHC 34.9 g/dL (32.0-36.0) 01/23/19 12:52 RDW 13.2 % (11.5-14.0) 01/23/19 12:52 Plt Count 222 10^3/uL (150-450) 01/23/19 12:52 Lymph % (Auto) 14.8 % (13-45) 01/23/19 12:52 [place] % (Auto) 14.2 % (3-13) H 01/23/19 12:52 Eos % (Auto) 0.4 % (0-6) 01/23/19 12:52 Baso % (Auto) 0.6 % (0-2) 01/23/19 12:52 Absolute Neuts (auto) 3.3 10^3/uL (1.7-8.2) 01/23/19 12:52 Absolute Lymphs (auto) 0.7 10^3/uL (0.5-4.7) 01/23/19 12:52 Absolute Monos (auto) 0.7 10^3/uL (0.1-1.4) 01/23/19 12:52 Absolute Eos (auto) 0.0 10^3/uL (0.0-0.6) 01/23/19 12:52 Absolute Basos (auto) 0.0 10^3/uL (0.0-0.2) 01/23/19 12:52 Seg Neutrophils % 70.0 % (42-78) 01/23/19 12:52 PT 14.2 SEC (11.4-15.4) 01/23/19 21:10 INR 1.10 01/23/19 21:10 APTT 45.5 SEC (23.5-35.8) H 01/23/19 21:10 Sodium 133.1 mmol/L (137-145) L 01/24/19 08:54 Potassium 4.0 mmol/L (3.6-5.0) D 01/24/19 08:54 Chloride 98 mmol/L (98-107) 01/24/19 08:54 Carbon Dioxide 25 mmol/L (22-30) 01/24/19 08:54 Anion Gap 10 (5-19) 01/24/19 08:54 BUN 7 mg/dL (7-20) 01/24/19 08:54 Creatinine 0.66 mg/dL (0.52-1.25) 01/24/19 08:54 Est GFR ( Amer) > 60 (>60) 01/24/19 08:54 Est GFR (MDRD) Non-Af > 60 (>60) 01/24/19 08:54 Glucose 125 mg/dL (75-110) H 01/24/19 08:54 Calcium 9.4 mg/dL (8.4-10.2) 01/24/19 08:54 Phosphorus 2.5 mg/dL (2.5-4.5) 01/23/19 21:10 Magnesium 1.9 mg/dL (1.6-2.3) 01/23/19 21:10 Total Bilirubin 0.7 mg/dL (0.2-1.3) 01/24/19 08:54 Direct Bilirubin 0.2 mg/dL (0.0-0.4) 01/24/19 08:54 Neonat Total Bilirubin Not Reportable 01/24/19 08:54 Neonat Direct Bilirubin Not Reportable 01/24/19 08:54 Neonat Indirect Bili Not Reportable 01/24/19 08:54 AST 27 U/L (14-36) 01/24/19 08:54 ALT 14 U/L (<35) 01/24/19 08:54 Alkaline Phosphatase 53 U/L (38-126) 01/24/19 08:54 Creatine Kinase 55 U/L (30-135) 01/24/19 08:54 CK-MB (CK-2) 0.81 ng/mL (<4.55) 01/24/19 08:54 Troponin I < 0.012 ng/mL 01/24/19 08:54 Total Protein 7.1 g/dL (6.3-8.2) 01/24/19 08:54 Albumin 3.8 g/dL (3.5-5.0) 01/24/19 08:54 TSH 6.64 uIU/mL (0.47-4.68) H 01/23/19 21:10 Free T4 1.20 ng/dL (0.78-2.19) 01/23/19 21:10 01/23/19 01/23/19 01/23/19 12:52 17:14 21:10 CK-MB (CK-2) 0.73 0.80 Troponin I 0.013 0.017 0.014 01/24/19 01/24/19 02:57 08:54 CK-MB (CK-2) 0.64 0.81 Troponin I 0.013 < 0.012 Impressions: Chest X-Ray 01/23/19 13:34 IMPRESSION: COPD. NO ACUTE RADIOGRAPHIC FINDING IN THE CHEST. Stroke Is this a Stroke Patient?: No Stroke Pt being discharged on Anti-thrombolytic therapy?: No Reason(s) for not prescribing Anti-thrombolytic therapy:: Contraindicated Stroke Pt being discharged on Anti-coagulation therapy?: No Reason(s) for not prescribing Anti-coagulation therapy:: Contraindicated Stroke Pt being discharged on Statins?: No Reason(s) for not prescribing Statins therapy:: Contraindicated Acute Heart Failure - Is this a Heart Failure Patient?: No Follow-up Appointment scheduled within 7 days?: Yes
== END 2019-01-24 12:19 | disposition home or self-care (01) ==
LOC: ER 10:50 → EH 16:17 → INTOOBSV 16:17 → 3W 20:05
PROVIDERS: ADMIT Internal Medicine; ATTEND Internal Medicine
DX: R07.89 Other chest pain (principal); I10 Essential (primary) hypertension; I35.0 Nonrheumatic aortic (valve) stenosis; K21.0 Gastro-esophageal reflux disease with esophagitis; E78.5 Hyperlipidemia, unspecified; R14.2 Eructation; E87.6 Hypokalemia; E87.1 Hypo-osmolality and hyponatremia; Z79.82 Long term (current) use of aspirin; Z79.899 Other long term (current) drug therapy; Z95.0 Presence of cardiac pacemaker; Z90.49 Acquired absence of other specified parts of digestive tract; Z87.19 Personal history of other diseases of the digestive system
CPT/HCPCS: 93005; 99285; 36415 ×2; 84439; 82553 ×2; 82550 ×2; 83735; 84100; 84443; 85025; 85610; 85730; 80076; 80048; 80053; 84484 ×2; 71046; 93010; G0378 ×2; A9270 ×10; J1644 ×2; J3490 ×3